=== PATIENT | female | born 1955 | race Two or more races ===

== ENCOUNTER 2023-09-19 16:15 | Emergency (ER) | payer OTHER, MEDICAID ==
[~2023-09-19] VITALS: Ht 142.2 cm; Wt 78.5 kg
[2023-09-19 18:29] VITALS: BP 163/76; PULSE 72; RESP 13; TEMP 97.5; O2SAT 96
[2023-09-19] MEDS ORDERED: BENZ100C97 PO (20:37)
== END 2023-09-19 20:46 | disposition home or self-care (01) ==
LOC: ER 16:15
DX: R05.9 Cough, unspecified (principal); R07.81 Pleurodynia; M54.6 Pain in thoracic spine; R07.89 Other chest pain; I10 Essential (primary) hypertension
CPT/HCPCS: 71045

== ENCOUNTER 2024-10-17 13:42 | Inpatient (IN) | payer OTHER, MEDICAID ==
[~2024-10-17] VITALS: Ht 157.5 cm; Wt 79.5 kg
[~2024-10-17 13:42] MED LIST: BENZ100C97 PO
--- NOTE | 2024-10-17 15:26 | ED.PDOC ---
History of Present Illness HPI Comments 69 y/o F, presents to the ED for CC of flu-like symptoms. Patient states, that she has been experiencing a persistent productive cough x years with new onset symptoms of insomnia and back pain [id number]. Patient relays, that she has experienced similar symptoms in the past which have always subsided with . David mari currently takes tramadol and denies any other medications. Patient denies fever, chills, body-aches, or N/V/D. No other symptoms or modifying factors at this time. Chief Complaint: Flu like Time Seen by MD: 15:10 Primary Care Provider: none Reviewed Notes: Nurses Notes, Medications, Allergies Allergies: Coded Allergies: NO KNOWN ALLERGIES (Unverified , 09/19/23) Home Meds Active Scripts Benzonatate (Benzonatate) 100 Mg Cap, 1-2 CAP PO Q4HR, #60 CAP Prov:LEONARD LIAO VIRAJ PAC 09/19/23 Information Source: Patient Mode of Arrival: Ambulatory Severity: Moderate Timing: Months Duration: Since onset Prehospital treatment: None Past Medical History PAST MEDICAL HISTORY: HTN Surgical History: Denies all surgeries SECURITIES RESEARCH ANALYST History: No Pertinent SECURITIES RESEARCH ANALYST History Family History Family History: Reviewed,noncontributory to illness Social History Smoker: Non-Smoker Alcohol: Denies ETOH Use Drugs: Denies Drug Use Lives In: Home Constitutional: reports: weakness; denies: chills, diaphoresis, fatigue, fever, malaise, sweats, others EENTM: denies: blurred vision, double vision, ear bleeding, ear discharge, ear drainage, ear pain, ear ringing, eye pain, eye redness, hearing loss, mouth pain, mouth swelling, nasal discharge, nose bleeding, nose congestion, nose pain, photophobia, tearing, throat pain, throat swelling, voice changes, others Respiratory: reports: cough; denies: hemoptysis, orthopnea, SOB at rest, shortness of breath, SOB with excertion, stridor, wheezing, others Cardiovascular: denies: chest pain, dizzy spells, diaphoresis, Dyspnea on exertion, edema, irregular heart beat, left arm pain, lightheadedness, palpitations, PND, syncope, others Gastrointestinal: denies: abdomen distended, abdominal pain, blood streaked bowels, constipated, diarrhea, dysphagia, difficulty swallowing, hematemesis, melena, nausea, poor appetite, poor fluid intake, rectal bleeding, rectal pain, vomiting, others Genitourinary: denies: abnormal vagina bleeding, burning, dyspareunia, dysuria, flank pain, frequency, hematuria, incontinence, pain, , vagina discharge, urgency, others Neurological: denies: dizziness, fainting, headache, left sided numbness, left sided weakness, numbness, paresthesia, pre-existing deficit, right sided numbness, right sided weakness, seizure, speech problems, tingling, tremors, weakness, others Musculoskeletal: reports: back pain; denies: gout, joint pain, joint swelling, muscle pain, muscle stiffness, neck pain, others Integumetry: denies: bruises, change in color, change in hair/nails, dryness, laceration, lesions, lumps, rash, wounds, others Allergic/Immunocompromised: denies: Difficulty Healing, Frequent Infections, Hives, Itching, others Hematologic/Lymphatic: denies: anemia, blood clots, easy bleeding, easy bruising, swollen glands, others Endocrine: denies: excessive hunger, excessive sweating, excessive thirst, excessive urination, flushing, intolerance to cold, intolerance to heat, unexplained weight gain, unexplained weight loss, others Psychiatric: denies: anxiety, bipolar disorder, depression, hopeless, panic disorder, schizophrenia, sleepless, suicidal, others All Other Systems: Reviewed and Negative Physical Exam General Appearance: Moderate Distress, Obese HEENT: Normal ENT Inspection, Pharynx Normal, TMs Normal Neck: Full Range of Motion, Non-Tender, Normal, Normal Inspection Respiratory: Chest Non-Tender, Decreased Breath Sounds, Lungs Clear, No Accessory Muscle Use, Respiratory Distress Cardiovascular: No Edema, No JVD, No Murmur, No Gallop, Normal Peripheral Pulses, Regular Rate/Rhythm Breast Exam: Deferred Gastrointestinal: No Organomegaly, Non Tender, No Pulsatile Mass, Normal Bowel Sounds, Soft Genitalia: Deferred Pelvic: Deferred Rectal: Deferred Extremities: No calf tenderness, Normal capillary refill, Pedal edema Musculoskeletal : Apperance: Normal Neurologic: Alert, food clerk II-XII nml as Tested, No Motor Deficits, Normal Affect, Normal Mood, No Sensory Deficits Cerebellar Function: Normal Reflexes: Normal Skin: Dry, Normal Color, Warm Lymphatic: No Adenopathy Was a procedure done? Was a procedure done?: No Differential Dx Considerations may include: URI, SINUITIS, BRONCHITIS, PNEUMONIA X-Ray, Labs, Meds, VS Vital Signs Date Time Temp Pulse Resp B/P (MAP) Pulse Ox O2 Delivery O2 Flow Rate FiO2 10/17/24 14:29 97.9 75 19 136/58 (84) 98 Lab Test 10/17/24 15:36 Range/Units White Blood Count 6.3 4.4-10.8 10^3/uL Red Blood Count 4.17 4.0-5.20 10^6/uL Hemoglobin 11.9 L 12.2-16.2 g/dL Hematocrit 36.1 36.0-46.0 % Mean Corpuscular Volume 86.6 80.0-100.0 fL Mean Corpuscular Hemoglobin 28.7 28.0-32.0 pg Mean Corpuscular Hemoglobin Concent 33.1 32.0-36.0 g/dL Red Cell Distribution Width 14.8 H 11.8-14.3 % Platelet Count 263 140-450 10^3/uL Mean Platelet Volume 8.6 6.9-10.8 fL Neutrophils (%) (Auto) 50.1 37.0-80.0 % Lymphocytes (%) (Auto) 36.1 10.0-50.0 % Monocytes (%) (Auto) 9.3 0.0-12.0 % Eosinophils (%) (Auto) 3.5 0.0-7.0 % Basophils (%) (Auto) 1.0 0.0-2.0 % Neutrophils # (Auto) 3.1 1.6-8.6 10 ^3/uL Lymphocytes # (Auto) 2.3 0.4-5.4 10 ^3/uL Monocytes # (Auto) 0.6 0-1.3 10 ^3/uL Eosinophils # (Auto) 0.2 0-0.8 10 ^3/uL Basophils # (Auto) 0.1 0-0.2 10 ^3/uL Nucleated Red Blood Cells 0.2 % Sodium Level 140 136-145 mmol/L Potassium Level 4.0 3.5-5.1 mmol/L Chloride Level 106 98-107 mmol/L Carbon Dioxide Level 28 20-31 mmol/L Anion Gap 6 5-15 Blood Urea Nitrogen 17 9-23 mg/dL Creatinine 1.07 H 0.550-1.02 mg/dL Glomerular Filtration Rate Calc 56 >90 mL/min BUN/Creatinine Ratio 15.9 10.0-20.0 Serum Glucose 104 74-106 mg/dL Calcium Level 9.3 8.7-10.4 mg/dL B-Type Natriuretic Peptide 268.95 0-100 pg/mL IV Hep-Lock was established The CBC is within normal limits. The chemistry panel shows a creatinine of 1.07 The BNP is 268.95 At this time, the patient was being admitted to the hospitalist. The chest x-ray shows: No sign of any abnormalities The patient was being admitted Images Reviewed?: Images reviewed and evaluated by me Time of 1ST Reevaluation: 15:40 Reevaluation 1ST: Unchanged Patient Education/Counseling: Diagnosis, Treatment, Prognosis Family Education/Counseling: No Family Present Departure 1 Departure Time of Disposition: 16:47 Impression: Primary Impression: Acute dyspnea Disposition: ADMITTED INPATIENT Admit to: [facility] Condition: Fair Critical Care Note Critical Care Time?: Yes (35 min-critical care time only) Stability Stability form required: Yes Unstable for transfer: Telemetry monitoring (Telemetry monitoring required), ED Physician Assesment (Clinical assesment) Heart Score Heart Score: Heart Score Response (Comments) Value History N/A 0 EKG N/A 0 Age N/A 0 Risk Factors N/A 0 Troponin N/A 0 Total 0 I personally scribed for ONEL BANKS MD ([email or web address]) on 10/17/24 at 15:26. Electronically submitted by Ambar Milner ([email or web address]). ONEL BANKS MD Oct 17, 2024 15:26
[2024-10-17 16:01] LABS: Basophils # (auto) 0.1 10 ^3/uL (0-0.2); Eosinophils # (auto) 0.2 10 ^3/uL (0-0.8); Eosinophils % (auto) 3.5 % (0.0-7.0); Hematocrit 36.1 % (36.0-46.0); Hemoglobin 11.9 g/dL (12.2-16.2); Lymphocytes # (auto) 2.3 10 ^3/uL (0.4-5.4); Lymphocytes % (auto) 36.1 % (10.0-50.0); Mean Corpuscular Hemoglobin 28.7 pg (28.0-32.0); Mean Corpuscular Hgb Conc. 33.1 g/dL (32.0-36.0); Mean Corpuscular Volume 86.6 fL (80.0-100.0); Monocytes # (auto) 0.6 10 ^3/uL (0-1.3); Monocytes % (auto) 9.3 % (0.0-12.0); Neutrophils # (auto) 3.1 10 ^3/uL (1.6-8.6); Neutrophils % (auto) 50.1 % (37.0-80.0); Nucleated Red Blood Cells % 0.2 %; Platelet Count (auto) 263 10^3/uL (140-450); Red Blood Cells 4.17 10^6/uL (4.0-5.20); Red Cell Distribution Width 14.8 % (11.8-14.3); White Blood Cell 6.3 10^3/uL (4.4-10.8)
[2024-10-17 16:02] LABS: Chloride 106 mmol/L (98-107); Sodium 140 mmol/L (136-145)
[2024-10-17 16:03] LABS: Anion Gap 6 (5-15); Calcium 9.3 mg/dL (8.7-10.4); Carbon Dioxide 28 mmol/L (20-31)
--- NOTE | 2024-10-17 16:07 | DVH ---
CHEST RADIOGRAPH Indication: cough Technique: Single frontal view of the chest was obtained COMPARISON: XY CHEST XRAY 1 VIEW on DOS: 09/19/23 FINDINGS: Lines and Tubes: None Lungs: Clear Pleura: No effusion. No pneumothorax. Cardiomediastinal contours: Unremarkable Bones: Unremarkable IMPRESSION: No acute disease.
[2024-10-17 16:08] LABS: Glucose 104 mg/dL (74-106)
[2024-10-17 16:09] LABS: BUN/Creatinine Ratio 15.9 (10.0-20.0); Blood Urea Nitrogen 17 mg/dL (9-23)
[2024-10-17 20:42] VITALS: PULSE 59; RESP 18; O2SAT 97
[2024-10-17 21:23] VITALS: BP 137/79; PULSE 62; RESP 18; TEMP 98.5
[2024-10-17] MEDS ORDERED: methylPREDNISolone SOD SUCC 40 MG/ML VL IV ONE (21:30)
[2024-10-17] MEDS ORDERED: AZITHROMYCIN 500MG/ 250ML 250 ML IV SCH (21:30)
[2024-10-17] MEDS ORDERED: FUROSEMIDE 20 MG/2 ML VIAL IV ONE (21:30)
[2024-10-17] MEDS ORDERED: IPRATROPIUM BROM 0.5 MG/2.5ML INH SOL NEB SCH (22:00)
[2024-10-17] MEDS ORDERED: ALBUTEROL SULF 2.5 MG/0.5ML(0.5%) NEB SOLN NEB SCH (22:00)
[2024-10-17 22:08] LABS: Rapid Influenza A Negative (Negative); Rapid Influenza B Negative (Negative)
--- NOTE | 2024-10-17 22:17 | DVHHPRES ---
History of Present Illness Resident Creating Document: OMID TORRES RESIDENT Reason for Visit: SOB History of Present Illness A 69-year-old female with a past medical history of hypertension presents with a two-week history of a persistent, productive cough with clear sputum. She also reports new-onset insomnia and back pain for the past six months. She denies fever, chills, body aches, nausea, vomiting, or other systemic symptoms. She has experienced similar episodes in the past that have resolved on their own. Patient also states orthopnea Past Medical History: Hypertension Past Surgical History: None reported Medications: Tramadol Benzonatate 100 mg (as per home medication list) Allergies: No known drug allergies Family History: Non-contributory Social History: Non-smoker Denies alcohol or drug use Review of Systems Constitutional: No: Fever, Chills, Sweats, Weakness, Malaise, Other Eyes: No: Pain, Vision change, Conjunctivae inflammation, Eyelid inflammation, Other, Redness ENT: No: Ear pain, Ear discharge, Nose pain, Nose discharge, Nose congestion, Mouth pain, Mouth swelling, Throat pain, Throat swelling, Other Respiratory: Cough, Shortness of breath; No: Dry, SOB with excertion, Wheezing, Hemoptysis, Pleuritic Pain, Sputum, Wheezing, Other Cardiovascular: Orthopnea; No: Chest Pain, Palpitations, Paroxysmal Noc. Dyspnea, Edema, Lt Headedness, Other Gastrointestinal: No: Nausea, Vomiting, Abdominal Pain, Diarrhea, Constipation, Melena, Hematochezia, Other Genitourinary: No Dysuria, No Frequency, No Incontinence, No Hematuria, No Retention, No Other Musculoskeletal: No: other, neck pain, shoulder pain, arm pain, back pain, hand pain, leg pain, foot pain Skin: No: Rash, Lesions, Jaundice, Bruising, Other Neurological: No: Weakness, Numbness, Incoordination, Change in speech, Confusion, Seizures, Other Allergies: Coded Allergies: NO KNOWN ALLERGIES (Unverified , 09/19/23) Medications Current Medications Medications Dose Ordered Sig/Alfred Route Start Time Stop Time Status Last Admin Dose Admin Azithromycin 250 ml @ 125 mls/hr DAILY IV 10/17/24 21:30 Albuterol 2.5 mg Q6HR NEB 10/18/24 00:00 Ipratropium [place] 0.5 mg Q6HR NEB 10/18/24 00:00 Exam Vital Signs Vital Signs Date Time Temp Pulse Resp B/P (MAP) Pulse Ox O2 Delivery O2 Flow Rate FiO2 10/17/24 21:23 98.5 62 18 137/79 (98) 96 98.5 10/17/24 20:42 Room Air* 0 21 Exam General: No acute distress HEENT: No oropharyngeal erythema or exudates Lungs: Bibasilar crackles, no wheezing Cardiac: Regular rate and rhythm, no murmurs or rubs Abdomen: Soft, non-tender, non-distended Extremities: No edema Neurological: Alert and oriented Labs/Xrays Labs Test 10/17/24 20:30 10/17/24 15:36 Range/Units Influenza Type A Antigen Negative Negative Influenza Type B Antigen Negative Negative White Blood Count 6.3 4.4-10.8 10^3/uL Red Blood Count 4.17 4.0-5.20 10^6/uL Hemoglobin 11.9 L 12.2-16.2 g/dL Hematocrit 36.1 36.0-46.0 % Mean Corpuscular Volume 86.6 80.0-100.0 fL Mean Corpuscular Hemoglobin 28.7 28.0-32.0 pg Mean Corpuscular Hemoglobin Concent 33.1 32.0-36.0 g/dL Red Cell Distribution Width 14.8 H 11.8-14.3 % Platelet Count 263 140-450 10^3/uL Mean Platelet Volume 8.6 6.9-10.8 fL Neutrophils (%) (Auto) 50.1 37.0-80.0 % Lymphocytes (%) (Auto) 36.1 10.0-50.0 % Monocytes (%) (Auto) 9.3 0.0-12.0 % Eosinophils (%) (Auto) 3.5 0.0-7.0 % Basophils (%) (Auto) 1.0 0.0-2.0 % Neutrophils # (Auto) 3.1 1.6-8.6 10 ^3/uL Lymphocytes # (Auto) 2.3 0.4-5.4 10 ^3/uL Monocytes # (Auto) 0.6 0-1.3 10 ^3/uL Eosinophils # (Auto) 0.2 0-0.8 10 ^3/uL Basophils # (Auto) 0.1 0-0.2 10 ^3/uL Nucleated Red Blood Cells 0.2 % Sodium Level 140 136-145 mmol/L Potassium Level 4.0 3.5-5.1 mmol/L Chloride Level 106 98-107 mmol/L Carbon Dioxide Level 28 20-31 mmol/L Anion Gap 6 5-15 Blood Urea Nitrogen 17 9-23 mg/dL Creatinine 1.07 H 0.550-1.02 mg/dL Glomerular Filtration Rate Calc 56 >90 mL/min BUN/Creatinine Ratio 15.9 10.0-20.0 Serum Glucose 104 74-106 mg/dL Calcium Level 9.3 8.7-10.4 mg/dL B-Type Natriuretic Peptide 268.95 0-100 pg/mL Assessment/Plan Assessment/Plan 69-year-old female with a history of HTN presenting with a productive cough for two weeks, insomnia, and back pain. Workup reveals mild pulmonary congestion on CXR and a mildly elevated BNP. #Possible Acute Heart Failure vs. #Viral Pneumonitis #Hypertension Admit Furosemide IV Solumedrol Azithromycin IV Breathing treatments ECHO pending Hold on BPs meds for now Case discussed with Dr Gardner Plan discussed with: Patient, Other (rn) My Orders Orders - OMID TORRES RESIDENT Procedure Category Date Status Time Admit ADMIT 10/17/24 Transmitted 21:22 Covid19 Antigen Veran LAB 10/17/24 Logged Echo 2d Mode Cardiac US 10/17/24 Logged DOP 21:22 Urinalysis LAB 10/17/24 Logged 21:22 Methylprednisolone PHA 10/17/24 In Process Sod Succ (Solu Medrol 21:30 Azithromycin 500mg/ PHA 10/17/24 In Process 250ml (Zithromax 50 21:30 Thyroid Stimulating LAB 10/17/24 In Process Hormone 21:22 Complete Blood Count LAB 10/18/24 Verified 04:00 Comprehensive LAB 10/18/24 Verified Metabolic Panel 04:00 Drug Screen LAB 10/18/24 Verified 04:00 Hemoglobin A1c LAB 10/18/24 Verified 04:00 Lactic Acid W/ Reflex LAB 10/18/24 Verified Order 04:00 Lipid Panel LAB 10/18/24 Verified 04:00 Vitamin B12 LAB 10/18/24 Verified 04:00 Vitamin D, 25-Hydroxy LAB 10/18/24 Verified 04:00 Electrocardigram EKG 10/17/24 Logged 21:43 Albuterol Medneb PHA 10/18/24 In Process (Ventolin Medneb) 00:00 Ipratropium Medneb PHA 10/18/24 In Process (Atrovent Medneb) 00:00 Date of Service: Oct 17, 2024 Billing Provider: MARCO GARDNER MD Common Visit Codes: 70005-LDZITHZ INP/OBS CARE (HIGH) Secondary Visit Codes: 77252-DHBZBHYK CARE PLAN 30 MINUTES OMID TORRES RESIDENT Oct 17, 2024 22:16 MARCO GARDNER MD Oct 18, 2024 18:34
[2024-10-17 22:30] VITALS: O2SAT 97
[2024-10-18] MEDS ORDERED: IPRATROPIUM BROM 0.5 MG/2.5ML INH SOL NEB SCH
[2024-10-18] MEDS ORDERED: ALBUTEROL SULF 2.5 MG/0.5ML(0.5%) NEB SOLN NEB SCH
[2024-10-18] MEDS ORDERED: FUROSEMIDE 20 MG/2 ML VIAL IV SCH (10:00)
== END 2024-10-17 22:59 | disposition left against medical advice (07) | DRG 195 ==
LOC: ER 13:42 → OVERFLOW 21:22
PROVIDERS: ATTEND Emergency Medicine
DX: J12.9 Viral pneumonia, unspecified (principal); I11.0 Hypertensive heart disease with heart failure; I50.9 Heart failure, unspecified; Z53.29 Procedure and treatment not carried out because of patient's decision for other reasons; Z79.899 Other long term (current) drug therapy
CPT/HCPCS: 36415; 71045; 80048; 83880; 84443; 85025; 87804; 99291; G0378

== ENCOUNTER 2025-06-02 13:36 | Inpatient (IN) | payer MEDICARE, MEDICAID ==
[~2025-06-02] VITALS: Ht 152.4 cm; Wt 82.9 kg
--- NOTE | 2025-06-02 13:58 | ECG ---
[facility] Test Date: 2025-06-02 Test Time: 13:48:18 Pat Name: LAUREN ROMERO Department: ED Room: Gender: F Knocker Off: TEJA : 1955 Requested By: EMERGENCY EMERGENCY Order Number: [id number] Reading MD: Maikel Sawyer Measurements Intervals [place] Rate: 81 P: 0 ID: 0 QRS: 25 QRSD: 79 T: 0 QT: 396 QTc: 460 Interpretive Statements Atrial fibrillation Borderline T wave abnormalities Electronically Signed On 06-02-2025 18:52:27 PDT by Maikel Sawyer Please click the below link to view image of tracing.
[2025-06-02 14:10] LABS: Hematocrit 37.4 % (36.0-46.0); Hemoglobin 12.6 g/dL (12.2-16.2); Mean Corpuscular Hemoglobin 28.9 pg (28.0-32.0); Mean Corpuscular Volume 86.1 fL (80.0-100.0); Nucleated Red Blood Cells % 0.0 %
[2025-06-02 14:20] LABS: Chloride 105 mmol/L (98-107); Potassium 3.9 mmol/L (3.5-5.1); Sodium 144 mmol/L (136-145)
[2025-06-02 14:21] LABS: Anion Gap 7 (5-15); Calcium 9.0 mg/dL (8.7-10.4); Carbon Dioxide 32 mmol/L (20-31)
--- NOTE | 2025-06-02 14:25 | DVH ---
CHEST RADIOGRAPH Indication: sob Technique: Single frontal view of the chest was obtained Comparison: XY CHEST XRAY 1 VIEW on DOS: 10/17/24, XY CHEST XRAY 1 VIEW on DOS: 09/19/23 FINDINGS: Lines and Tubes: None Lungs: No focal consolidation. Pleura: No effusion. No pneumothorax. Cardiomediastinal contours: Unremarkable Bones: No acute osseous abnormality. IMPRESSION: 1. No acute cardiopulmonary disease. 2. No significant change from 10/17/2024.
[2025-06-02 14:26] LABS: Blood Urea Nitrogen 15 mg/dL (9-23); Glucose 111 mg/dL (74-106)
--- NOTE | 2025-06-02 14:29 | ED.PDOC ---
History of Present Illness HPI Comments 70 y/o Kittitian-speaking F, with a Hx of HTN, presents with c/c of shortness of breath w/exertion for 1x week. Patient reports becoming short of breath within walking a a few meters. She reports associated dizziness and bilateral arm and leg pain. Denies any chest pain, weakness, lightheadedness, or further a ssociated symptoms. No reported recent injuries or prior ailments along with any pertinent recent history or events. Upon arrival to ED triage, patient was found with a blood pressure of 166/91. Chief Complaint: Shortness of Breath Time Seen by MD: 13:45 Primary Care Provider: none Reviewed Notes: Nurses Notes, Medications, Allergies Allergies: Coded Allergies: NO KNOWN ALLERGIES (Unverified , 09/19/23) Home Meds Active Scripts Benzonatate (Benzonatate) 100 Mg Cap, 1-2 CAP PO Q4HR, #60 CAP Prov:LEONARD LIAO VIRAJ PAC 09/19/23 Information Source: Patient Mode of Arrival: Ambulatory Severity: Moderate Timing: Days Duration: Since onset Prehospital treatment: None Past Medical History PAST MEDICAL HISTORY: HTN Surgical History: Denies all surgeries BAY STOCKER History: No Pertinent BAY STOCKER History Family History Family History: Reviewed,noncontributory to illness Social History Smoker: Non-Smoker Alcohol: Denies ETOH Use Drugs: Denies Drug Use Lives In: Home All Other Systems: Reviewed and Negative (Comprehensive review of systems are n egative unless stated in HPI) Physical Exam General Appearance: Moderate Distress HEENT: Normal ENT Inspection, Pharynx Normal, TMs Normal Neck: Full Range of Motion, Non-Tender, Normal, Normal Inspection Respiratory: Other (Coarse breath sounds) Cardiovascular: No Edema, No JVD, No Murmur, No Gallop, Normal Peripheral Pulses, Regular Rate/Rhythm Breast Exam: Deferred Gastrointestinal: No Organomegaly, Non Tender, No Pulsatile Mass, Normal Bowel Sounds, Soft Genitalia: Deferred Pelvic: Deferred Rectal: Deferred Extremities: No calf tenderness, Normal capillary refill, Normal inspection, Normal range of motion, Non-tender, No pedal edema Musculoskeletal : Apperance: Normal Neurologic: Alert, supervisor forming department II-XII nml as Tested, No Motor Deficits, Normal Affect, Normal Mood, No Sensory Deficits Cerebellar Function: Normal Reflexes: Normal Skin: Dry, Normal Color, Warm Peripheral Pulses: 3+ Radial (R), 3+ Radial (L) Lymphatic: No Adenopathy Was a procedure done? Was a procedure done?: No EKG EKG : Pulse Rate (adult): 81 [place]: Normal Cardiac Rhythm: Afib Block: None Hypertrophy: None ST: Normal Differential Dx Considerations may include: Vertigo, viral, dehydration, electrolyte imbalance, hypertension, among others X-Ray, Labs, Meds, VS Vital Signs Date Time Temp Pulse Resp B/P (MAP) Pulse Ox O2 Delivery O2 Flow Rate FiO2 06/02/25 14:29 81 06/02/25 13:48 81 06/02/25 13:39 80.5 90 18 166/91 100 80.5 Lab Test 06/02/25 14:04 Range/Units White Blood Count 7.6 4.4-10.8 10^3/uL Red Blood Count 4.35 4.0-5.20 10^6/uL Hemoglobin 12.6 12.2-16.2 g/dL Hematocrit 37.4 36.0-46.0 % Mean Corpuscular Volume 86.1 80.0-100.0 fL Mean Corpuscular Hemoglobin 28.9 28.0-32.0 pg Mean Corpuscular Hemoglobin Concent 33.6 32.0-36.0 g/dL Red Cell Distribution Width 14.4 H 11.8-14.3 % Platelet Count 249 140-450 10^3/uL Mean Platelet Volume 8.7 6.9-10.8 fL Neutrophils (%) (Auto) 60.3 37.0-80.0 % Lymphocytes (%) (Auto) 28.3 10.0-50.0 % Monocytes (%) (Auto) 7.8 0.0-12.0 % Eosinophils (%) (Auto) 3.1 0.0-7.0 % Basophils (%) (Auto) 0.5 0.0-2.0 % Neutrophils # (Auto) 4.6 1.6-8.6 10 ^3/uL Lymphocytes # (Auto) 2.1 0.4-5.4 10 ^3/uL Monocytes # (Auto) 0.6 0-1.3 10 ^3/uL Eosinophils # (Auto) 0.2 0-0.8 10 ^3/uL Basophils # (Auto) 0 0-0.2 10 ^3/uL Nucleated Red Blood Cells 0.0 % Sodium Level 144 136-145 mmol/L Potassium Level 3.9 3.5-5.1 mmol/L Chloride Level 105 98-107 mmol/L Carbon Dioxide Level 32 H 20-31 mmol/L Anion Gap 7 5-15 Blood Urea Nitrogen 15 9-23 mg/dL Creatinine 0.98 0.550-1.02 mg/dL Glomerular Filtration Rate Calc 61 >90 mL/min BUN/Creatinine Ratio Pending Serum Glucose 111 H 74-106 mg/dL Calcium Level 9.0 8.7-10.4 mg/dL Troponin I High Sensitivity 37 *H </=34 ng/L [facility] [id number] [place] [address] Ph: [phone] DIAGNOSTIC IMAGING Diagnostic Imaging Report : [id number] Signed PATIENT: LAUREN ROMERO ACCT: [id number] UNIT: [id number] : 1955 LOC: ER ROOM / BED: / AGE / SEX: 70 / F ADM STATUS: REG ER SERVICE 1358 ORDERING PHYSICIAN: CRISTI KENNY MD PROCEDURE(s): CXRP - CHEST PORTABLE REASON: sob ORDER NUMBER(s): [id number], ACCESSION NUMBER(s): [id number] CHEST RADIOGRAPH Indication: sob Technique: Single frontal view of the chest was obtained Comparison: XY CHEST XRAY 1 VIEW on DOS: 10/17/24, XY CHEST XRAY 1 VIEW on DOS: 09/19/23 FINDINGS: Lines and Tubes: None Lungs: No focal consolidation. Pleura: No effusion. No pneumothorax. Cardiomediastinal contours: Unremarkable Bones: No acute osseous abnormality. IMPRESSION: 1. No acute cardiopulmonary disease. 2. No significant change from 10/17/2024. ATED BY: JONNY NAVARRO Jr., DO DICTATED DATE/TIME: 06/02/251422 SIGNED BY: JONNY NAVARRO Jr., DO SIGNED DATE/TIME: 06/02/251422 CC: Patient alert. Came in because of shortness a breath dizziness. Vitals stable. Answering all questions. Chest x-ray reviewed does not show any acute changes. Cardiac marker slightly elevated. EKG reviewed does not show any acute changes. WBC within normal limits. Hemoglobin within normal limits. Blood pressure elevated. Was given clonidine. Time of 1ST Reevaluation: 14:15 Reevaluation 1ST: Unchanged Patient Education/Counseling: Diagnosis, Treatment Family Education/Counseling: No Family Present SEPSIS Sepsis Screen Date sepsis recognized/suspect: Jun 02, 2025 Time Sepsis recognized/suspect: 1341 Recent Procedure: No On Antibiotic Therapy: No Respiratory Rate >20: No Heart Rate >90: Yes Temp<36 C (96.8 F) or >38.3 C: No SBP <90 or MAP <65 mmHG: No New Acute Mental Status Change: No Is the patient on CPAP, BIPAP,: No Physician Orders Chest Portable (06/02/25 13:58) Urinalysis (06/02/25 13:58) Basic Metabolic Panel (06/02/25 13:58) Vital Signs Date Time Temp Pulse Resp B/P (MAP) Pulse Ox O2 Delivery O2 Flow Rate FiO2 06/02/25 14:29 81 06/02/25 13:48 81 06/02/25 13:39 80.5 90 18 166/91 100 80.5 Laboratory Tests Test 06/02/25 14:04 White Blood Count 7.6 10^3/uL (4.4-10.8) Departure 1 Departure Time of Disposition: 14:52 Impression: Primary Impression: Hypertensive urgency Additional Impressions: Hypertensive cardiomyopathy Qualified Codes: I11.0 - Hypertensive heart disease with heart failure; I43 - Cardiomyopathy in diseases classified elsewhere Demand ischemia Autonomic disorder Disposition: ADMITTED INPATIENT Admit to: Med Surg Condition: Guarded Critical Care Note Critical Care Time?: Yes (90 min-critical care time only) Stability Stability form required: No Heart Score Heart Score: Heart Score Response (Comments) Value History Slightly Suspicious 0 EKG Normal 0 Age >65 2 Risk Factors >3 or Hx ASHD 2 Troponin 1-2 x's Normal limit 1 Total 5 I personally scribed for CRISTI KENNY MD ([email or web address]) on 06/02/25 at 14:29. Electronically submitted by Chandana Erazo ([email or web address]). I personally scribed for CRISTI KENNY MD ([email or web address]) on 06/02/25 at 14:33. Electronically submitted by Chandana Erazo ([email or web address]). CRISTI KENNY MD Jun 02, 2025 14:29
[2025-06-02 14:57] LABS: BUN/Creatinine Ratio 15.3 (10.0-20.0)
[2025-06-02 15:35] VITALS: PULSE 76; RESP 18; O2SAT 97
[2025-06-02 15:38] LABS: Urine Protein, UAD Negative (Negative)
[2025-06-02] MEDS ORDERED: ONDANSETRON HCL 4 MG/2 ML VIAL IV PRN (21:30)
[2025-06-02] MEDS ORDERED: ACETAMINOPHEN 325 MG TAB PO PRN (21:30)
[2025-06-02] MEDS ORDERED: MORPHINE SULFATE INJ 2 MG/ml SYRG IV PRN (21:30)
[2025-06-02] MEDS ORDERED: NITROGLYCERIN 0.4 MG SL TAB SL PRN (21:30)
[2025-06-02 21:49] LABS: HDL Cholesterol 59 mg/dL (40-59)
[2025-06-02 21:50] LABS: Cholesterol 214 mg/dL (< 200); Triglycerides 288 mg/dL (< 150)
[2025-06-02 23:55] VITALS: PULSE 64; RESP 19; O2SAT 97
[2025-06-02] MEDS: FUROSEMIDE 20 MG/2 ML VIAL IV ONE (23:55)
[2025-06-03] VITALS (9 sets, daily range): BP systolic 101–136; BP diastolic 54–87; PULSE 61–79; RESP 16–19; TEMP 97.2–98.4; O2SAT 94–100
--- NOTE | 2025-06-03 02:01 | DVHHP2 ---
Admitting Diagnosis: CHF, Chest Pain, Elevated troponin History of Present Illness History Source: Patient Exam Limitations: No limitations HPI Mrs. Suyapa Hernandez is a 70 year old female, with a history of Hypertension who presents with a chief complaint of shortness of breath w/exertion x 1 week. Patient reports becoming short of breath within walking a a few meters. She reports associated dizziness and bilateral lower extremity swelling, patient also reports chest pressure to generalized chest. Denies any weakness, lightheadedness, or further associated symptoms. No reported recent injuries or prior ailments along with any pertinent recent history or events. Patient admitted for further evaluation. Home Meds Active Scripts Benzonatate (Benzonatate) 100 Mg Cap, 1-2 CAP PO Q4HR, #60 CAP Prov:LEONARD LIAO PAC 09/19/23 Past Medical History Cardiac: HTN Pulmonary: No pertinent Hx Central Nervous System: No pertinent Hx GI: No pertinent Hx Hemotology/Oncology: No pertinent Hx Hepatobiliary: No pertinent Hx Psychiatric: No pertinent Hx Musculoskeletal: No pertinent Hx Rheumotologic: No pertinent Hx Infectious Disease: No peritnent Hx ENT: No pertinent Hx Renal/: No pertinent Hx Endocrine: No pertinent Hx Dermatology: No pertinent Hx Smoker: No Hx (Negative) Alocohol: None Drugs: None Lives with: With family Domestic Violence: Neg Review of Systems Constitutional: No symptom reported Ears, Nose, & Throat: No symptom reported Eyes: No symptom reported Pulmonary/Respiratory: Dyspnea (exertional) Cardiovascular: Other (chest pressure) Gastrointestinal: No symptom reported Genitourinary: No symptom reported Musculoskeletal: No symptom reported Skin: No symptom reported Psychiatric: No symptom reported Endocrine: No symptom reported Hemotologic/Lymphatic: No symptom reported H&P Exam Vital Signs Vital Signs Date Time Temp Pulse Resp B/P (MAP) Pulse Ox O2 Delivery O2 Flow Rate FiO2 06/02/25 23:55 97.8 64 19 97/49 (65) 97 97.8 06/02/25 23:55 Room Air* 0 21 General Appeara: Well developed, Well nourished, Normal Appearance Head Exam: Normal inspection Neck Exam: Normal inspection, Non-tender, Normal alignment Eye Exam: bilateral eye Normal inspection, bilateral eye PERRL, bilateral eye EOMI Ear Exam: bilateral ear Auricle normal Nasal Exam: Normal inspection Mouth: Normal Inspection Pulmonary/Respiratory: Normal inspection, Normal breath sounds, Chest non- tender, Lungs clear Cardiovascular/Chest: Normal inspection, Edema (BLE), Regular rate, Normal Rhythm Peripheral Pulses: 2+ dorsalis pedis (R), 2+ dorsalis pedis (L), 2+ Radial (R) Abdominal Exam: Normal bowel sounds, Soft, No tenderness Legs: bilateral leg swelling (+2 pitting edema) 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, Normal speech, PERRL Neuro/Mental St: Alert, Oriented Appearance: Appropriate appearance, Appropriate insight Eye contact/ Speech: Cooperative, Good eye contact, Normal speech Thoughts/Psych: Normal thought pattern Skin Exam: Normal inspection, Normal color, Warm/dry SEPSIS Sepsis Screen Date sepsis recognized/suspect: Jun 02, 2025 Time Sepsis recognized/suspect: 2354 Recent Procedure: No On Antibiotic Therapy: No Respiratory Rate >20: No Heart Rate >90: No Temp<36 C (96.8 F) or >38.3 C: No SBP <90 or MAP <65 mmHG: No New Acute Mental Status Change: No Is the patient on CPAP, BIPAP,: No Physician Orders Troponin-I Hs (06/03/25 06:00) Troponin-I Hs (06/03/25 14:00) Admit (06/02/25:) Urine Bacterial Culture (06/02/25:) Cardiac Diet-2gna,Lofat,Lochol (06/03/25 Breakfast) Full Code (06/02/25:25) Strict I & O QSHIFT (06/02/25:) Maintain Fluid Restrictions QSHIFT (06/02/25:25) Echo 2d Mode Cardiac Dop (06/02/25:25) * Cardiology Consult (06/02/25:25) Nitroglycerin Sublingual (Ntrostat Subli (06/02/25 21:30) Morphine Sulfate Injection (06/02/25 21:30) Stat Ekg For Chest Pain (06/02/25:) Notify Of Changes From Base (06/02/25:) Stitch Separator For 24 Hours (06/02/25:25) Emergency Dysrhythmia Protocol (06/02/25:) Rhythm Strips Once Every Shift (06/02/25:) Oxygen By Nasal Cannula (10/18/25 21:25) Basic Metabolic Panel (06/03/25 05:00) Basic Metabolic Panel (06/04/25 05:00) Ondansetron Hcl (Zofran) (06/02/25 21:30) Aspirin Tablet (06/03/25 10:00) Enoxaparin Sodium (Lovenox) (06/03/25 10:00) Hydrocodone-Acet 5/325mg Tab ([place] 5/32 (06/02/25 21:30) Famotidine Tablet (Pepcid Tablet) (06/02/25 22:00) Acetaminophen Tablet (Tylenol Tablet) (06/02/25 21:30) Ceftriaxone 1gm/50ml (Rocephin) (06/03/25 10:00) Atorvastatin (Lipitor) (06/03/25 22:00) Furosemide Injection (Lasix Injection) (06/03/25 06:00) Vital Signs Date Time Temp Pulse Resp B/P (MAP) Pulse Ox O2 Delivery O2 Flow Rate FiO2 06/02/25 23:55 97.8 64 19 97/49 (65) 97 97.8 06/02/25 23:55 64 19 97 Room Air* 0 21 06/02/25 23:55 97.8 64 19 97/49 (65) 97 97.8 06/02/25 22:43 97.4 61 20 95/48 (64) 98 97.4 06/02/25 22:43 61 20 98 Room Air 06/02/25 18:04 97.8 65 18 93/65 (74) 97 97.8 Laboratory Tests Test 06/02/25 14:04 White Blood Count 7.6 10^3/uL (4.4-10.8) Medications Medications Dose Ordered Sig/Alfred Route Start Time Stop Time Status Last Admin Dose Admin Aspirin 325 mg ONCE ONCE PO 06/02/25 15:00 06/02/25 15:01 DC 06/02/25 15:28 325 MG Clonidine HCl 0.2 mg ONCE ONCE PO 06/02/25 15:00 06/02/25 15:01 DC 06/02/25 15:28 0.2 MG Labs/Xrays Labs Test 06/02/25 23:31 06/02/25 14:55 06/02/25 14:04 Range/Units Troponin I High Sensitivity 36 *H </=34 ng/L Urine Color Light-yellow Yellow Urine Clarity Clear Clear Urine pH 6.0 5.0-9.0 Urine Specific [place] 1.018 1.001-1.035 Urine Protein Negative Negative Urine Ketones Negative Negative Urine Blood 1+ H Negative /uL Urine Nitrite Negative Negative Urine Bilirubin Negative Negative Urine Urobilinogen Normal Negative mg/dL Urine Leukocyte Esterase 3+ Negative /uL Urine RBC 11 0 - 4 /hpf Urine Microscopic WBC 8 H 0-5 /HPF Urine Squamous Epithelial Cells Few <5 /hpf Urine Bacteria None seen None Seen /hpf Urine Mucus Few None Seen Urine Glucose Normal Normal mg/dL White Blood Count 7.6 4.4-10.8 10^3/uL Red Blood Count 4.35 4.0-5.20 10^6/uL Hemoglobin 12.6 12.2-16.2 g/dL Hematocrit 37.4 36.0-46.0 % Mean Corpuscular Volume 86.1 80.0-100.0 fL Mean Corpuscular Hemoglobin 28.9 28.0-32.0 pg Mean Corpuscular Hemoglobin Concent 33.6 32.0-36.0 g/dL Red Cell Distribution Width 14.4 H 11.8-14.3 % Platelet Count 249 140-450 10^3/uL Mean Platelet Volume 8.7 6.9-10.8 fL Neutrophils (%) (Auto) 60.3 37.0-80.0 % Lymphocytes (%) (Auto) 28.3 10.0-50.0 % Monocytes (%) (Auto) 7.8 0.0-12.0 % Eosinophils (%) (Auto) 3.1 0.0-7.0 % Basophils (%) (Auto) 0.5 0.0-2.0 % Neutrophils # (Auto) 4.6 1.6-8.6 10 ^3/uL Lymphocytes # (Auto) 2.1 0.4-5.4 10 ^3/uL Monocytes # (Auto) 0.6 0-1.3 10 ^3/uL Eosinophils # (Auto) 0.2 0-0.8 10 ^3/uL Basophils # (Auto) 0 0-0.2 10 ^3/uL Nucleated Red Blood Cells 0.0 % Sodium Level 144 136-145 mmol/L Potassium Level 3.9 3.5-5.1 mmol/L Chloride Level 105 98-107 mmol/L Carbon Dioxide Level 32 H 20-31 mmol/L Anion Gap 7 5-15 Blood Urea Nitrogen 15 9-23 mg/dL Creatinine 0.98 0.550-1.02 mg/dL Glomerular Filtration Rate Calc 61 >90 mL/min BUN/Creatinine Ratio 15.3 10.0-20.0 Serum Glucose 111 H 74-106 mg/dL Calcium Level 9.0 8.7-10.4 mg/dL B-Type Natriuretic Peptide 250.70 0-100 pg/mL Triglycerides Level 288 H < 150 mg/dL Cholesterol Level 214 H < 200 mg/dL LDL Cholesterol 127 H < 100 mg/dL HDL Cholesterol 59 40-59 mg/dL Assessment/Plan Problem List: (1) CHF (congestive heart failure) (2) Hypertensive urgency (3) Demand ischemia Plan This is a 70 yo female with known history of hypertension , who presents to the hospital with exertional dyspnea with associated chest pressure. Patient found to have 1. CHF 2. Chest pressure 3. Mildly elevated troponin most likely d/t demand ischemia 4. Hypertensive urgency 5. UTI Plan Admit to telemetry Cardiology consultation, 2D echocardiogram, serial troponin levels, ASA, Statin DVT ppx IV antibiotic , urine culture IV diuresis, monitor electrolytes replenish as needed Fluid Restriction, strict I&O Discussed all above with patient and patient in Filipino , both verbalized agreement and understanding of care plan. All questions were answered. Discussed with supervising MD. Plan discussed with: Patient, Other Code Visit Code Visit Total Time (mins): 45 Additional Comments Additional Comments Additional Comments Patient's chart is reviewed and discussed with the nurse practitioner. Patient is seen and evaluated and admitted by nurse practitioner this morning. I agree with her evaluation, documentation, assessment and care plan as outlined. Patient is seen and evaluated by me earlier today and discussed the care plan with the nurse. BARBRA KNOX Jun 03, 2025 02:01 LYDIA CAZARES MD Jun 03, 2025 16:28
[2025-06-03] MEDS: FAMOTIDINE 20 MG TAB PO SCH (02:27)
[2025-06-03] MEDS: FUROSEMIDE 20 MG/2 ML VIAL IV SCH (05:58)
[2025-06-03 06:26] LABS: Chloride 106 mmol/L (98-107); Potassium 4.1 mmol/L (3.5-5.1); Sodium 138 mmol/L (136-145)
[2025-06-03 06:27] LABS: Anion Gap 11 (5-15); Calcium 9.0 mg/dL (8.7-10.4); Carbon Dioxide 21 mmol/L (20-31)
[2025-06-03 06:32] LABS: BUN/Creatinine Ratio 20.3 (10.0-20.0); Blood Urea Nitrogen 13 mg/dL (9-23); Glucose 103 mg/dL (74-106)
[2025-06-03] MEDS: ENOXAPARIN SOD 40 MG/0.4 ML SYRINGE SC SCH (09:47)
--- NOTE | 2025-06-03 16:34 | DVHSR ---
APPROVED REPORT EXAM: Two-dimensional and M-mode echocardiogram with Doppler and color Doppler. Blood Pressure: 121/73 mmHg INDICATION Chest Pain Elevated troponin RISK FACTORS Height: 5'0", Weight: 185 DIMENSIONS LVDd3.9 (3.8-5.7cm)LA (2D)3.8 (1.9-4.0cm)Aortic Root3.2 (2.0-3.7cm) LVDs2.7 (2.5-4.0cm)LA (MM) (1.9-4.0cm)Aortic Cusp Exc1.9 (1.5-2.0cm) EF (%) 60.0 (55-70%)Rt. Atrium3.9 (1.9-4.0cm)Asc. Aorta cm IVSd1.2 (0.7-1.1cm)RV (D) (1.8-2.4cm) PWd1.3 (0.7-1.1cm) Mitral Valve MitralMitral Stenosis E wave1.07m/sMV Mean GR.mmHg A wave0.29m/sMV Peak GR.mmHg E/A ratio3.72D MVAcm2 DECEL [id number] 1/2 [place] Aortic Valve Aortic ValveAortic Stenosis V10.87m/Zev Mean GR.3mmHg V21.18m/Zev Peak GR.6mmHg LVOT Diameter2.0 (1.8-2.4cm)Doppler AVA2.32cm2 Pulmonic Valve V20.77m/s Tricuspid Valve TR Velocity2.34m/s [id number] Other Information Technically limited study due to body habitus. Conclusion Rhythm. Concentric LVH. Valves are normal. Mild mitral annular calcification. EF of 60% with normal RV function. Mild TR. No pericardial effusion masses or vegetations.
[2025-06-03] MEDS: HYDROcodone-ACET 5/325MG TAB PO PRN (20:49)
[2025-06-03] MEDS: ATORVASTATIN 20 MG TAB PO SCH (20:51)
[2025-06-04] VITALS (7 sets, daily range): BP systolic 109–134; BP diastolic 43–79; PULSE 57–83; RESP 16–19; TEMP 36.5; O2SAT 96–99
[2025-06-04 08:09] LABS: Chloride 101 mmol/L (98-107); Sodium 142 mmol/L (136-145)
[2025-06-04 08:10] LABS: Anion Gap 12 (5-15); Calcium 9.0 mg/dL (8.7-10.4); Carbon Dioxide 29 mmol/L (20-31)
[2025-06-04] MEDS ORDERED: IOHEXOL 350 MG/ML 100ML IJ ONE (08:12)
[2025-06-04 08:15] LABS: BUN/Creatinine Ratio 18.0 (10.0-20.0); Blood Urea Nitrogen 16 mg/dL (9-23); Glucose 100 mg/dL (74-106)
[2025-06-04 08:17] LABS: Potassium 3.5 mmol/L (3.5-5.1)
--- NOTE | 2025-06-04 09:21 | DVH ---
CT CT ANGIO CHEST CONTRAST INDICATION: Pleuritic chest discomfort EXAM DATE: 06/04/2025 08:02 AM COMPARISON: XY CHEST PORTABLE on DOS: 06/02/25, XY CHEST XRAY 1 VIEW on DOS: 10/17/24, XY CHEST XRAY 1 VIEW on DOS: 09/19/23 RADIATION DOSE: CTDIvol: 24.09 mGy, DLP: 827.49 mGy*cm PROCEDURE: Helical CT angiographic images were obtained of the chest with intravenous contrast. Sagi ttal and coronal reconstructions as well as MIPS are provided. Maximum intensity projections performe d (MIPs) were performed for CTA. ADDITIONAL IMAGES / REFORMATS: None All CT scans at this medical facility are performed using dose modulation techniques as appropriate t o a performed exam including the following: Automated exposure control was utilized; adjustment of th e MA and/or KV according to patient size; and use of iterative reconstruction technique. FINDINGS: Bones: Scattered degenerative changes are noted in the visualized osseous structures. Visualized Abdomen: Gallstone seen in the gallbladder. Chest Wall: Normal. Soft tissues: Normal. Mediastinum: Normal. Heart: Normal. Vessels: No filling defects in the visualized pulmonary arteries including the segmental and subsegme ntal pulmonary arteries. Lymph Nodes: Normal. Pleura: Normal. Airways: Normal. Lung: Mosaic lung attenuation. Other: None IMPRESSION: No pulmonary embolism in the visualized pulmonary arteries including the segmental and subsegmental p ulmonary arteries.
--- NOTE | 2025-06-04 10:07 | DVHINCON2 ---
Date of service: Jun 04, 2025 History of Present Illness 70 yo F with hx of htn, admitted for sob, leg edema and new AFib. pt found to be in afib on ecg. pt has no hx of this. echo showed normal lvef Past Medical History reviewed Family History: Patient reports no known family medical history. Allergies: Coded Allergies: NO KNOWN ALLERGIES (Unverified , 09/19/23) Home Meds Active Scripts Benzonatate (Benzonatate) 100 Mg Cap, 1-2 CAP PO Q4HR, #60 CAP Prov:LEONARD LIAO PAC 09/19/23 Current Medications Current Medications Medications (Trade) Dose Ordered Sig/Alfred Route PRN Reason Start Time Stop Time Status Last Admin Atorvastatin Calcium (Lipitor) 40 mg HS PO 06/03/25 22:00 06/03/25 20:51 Review of Systems 10 pt ros otherwise negative Vital Signs Vital Signs Date Time Temp Pulse Resp B/P (MAP) Pulse Ox O2 Delivery O2 Flow Rate FiO2 06/04/25 09:00 98.2 73 18 134/75 (94) 98 98.2 06/03/25 20:00 Room Air* 0 21 Physical Exam nad s1 s2 irregular ctab soft nt/nd +leg edema Labs/Diagnostic Data Labs Test 06/04/25 07:22 06/03/25 19:05 06/02/25 14:55 06/02/25 14:04 Range/Units Sodium Level 142 136-145 mmol/L Potassium Level 3.5 3.5-5.1 mmol/L Chloride Level 101 98-107 mmol/L Carbon Dioxide Level 29 20-31 mmol/L Anion Gap 12 5-15 Blood Urea Nitrogen 16 9-23 mg/dL Creatinine 0.89 # 0.550-1.02 mg/dL Glomerular Filtration Rate Calc 69 >90 mL/min BUN/Creatinine Ratio 18.0 10.0-20.0 Serum Glucose 100 74-106 mg/dL Calcium Level 9.0 8.7-10.4 mg/dL Troponin I High Sensitivity 39 *H </=34 ng/L Urine Color Light-yellow Yellow Urine Clarity Clear Clear Urine pH 6.0 5.0-9.0 Urine Specific [place] 1.018 1.001-1.035 Urine Protein Negative Negative Urine Ketones Negative Negative Urine Blood 1+ H Negative /uL Urine Nitrite Negative Negative Urine Bilirubin Negative Negative Urine Urobilinogen Normal Negative mg/dL Urine Leukocyte Esterase 3+ Negative /uL Urine RBC 11 0 - 4 /hpf Urine Microscopic WBC 8 H 0-5 /HPF Urine Squamous Epithelial Cells Few <5 /hpf Urine Bacteria None seen None Seen /hpf Urine Mucus Few None Seen Urine Glucose Normal Normal mg/dL White Blood Count 7.6 4.4-10.8 10^3/uL Red Blood Count 4.35 4.0-5.20 10^6/uL Hemoglobin 12.6 12.2-16.2 g/dL Hematocrit 37.4 36.0-46.0 % Mean Corpuscular Volume 86.1 80.0-100.0 fL Mean Corpuscular Hemoglobin 28.9 28.0-32.0 pg Mean Corpuscular Hemoglobin Concent 33.6 32.0-36.0 g/dL Red Cell Distribution Width 14.4 H 11.8-14.3 % Platelet Count 249 140-450 10^3/uL Mean Platelet Volume 8.7 6.9-10.8 fL Neutrophils (%) (Auto) 60.3 37.0-80.0 % Lymphocytes (%) (Auto) 28.3 10.0-50.0 % Monocytes (%) (Auto) 7.8 0.0-12.0 % Eosinophils (%) (Auto) 3.1 0.0-7.0 % Basophils (%) (Auto) 0.5 0.0-2.0 % Neutrophils # (Auto) 4.6 1.6-8.6 10 ^3/uL Lymphocytes # (Auto) 2.1 0.4-5.4 10 ^3/uL Monocytes # (Auto) 0.6 0-1.3 10 ^3/uL Eosinophils # (Auto) 0.2 0-0.8 10 ^3/uL Basophils # (Auto) 0 0-0.2 10 ^3/uL Nucleated Red Blood Cells 0.0 % B-Type Natriuretic Peptide 250.70 0-100 pg/mL Triglycerides Level 288 H < 150 mg/dL Cholesterol Level 214 H < 200 mg/dL LDL Cholesterol 127 H < 100 mg/dL HDL Cholesterol 59 40-59 mg/dL Microbiology Date/Time Source Procedure Growth Status 06/02/25 14:55 Voided Urine Urine Culture - Preliminary Resulted Assessment acute on chronic diastolic HF nyha Class III ckd afib htn obesity Plan/Recommendation dc asa start doac for pt rate control pt iv lasix prn outpt holter Plan discussed with: Patient SHAWN CHURCH MD Jun 04, 2025 10:07
[2025-06-04] MEDS ORDERED: FURO40TA4 PO (16:03)
[2025-06-04] MEDS ORDERED: APIX5TAB PO (16:03)
--- NOTE | 2025-06-04 16:04 | DVHDS2 ---
Discharge Summary Date of Admission Jun 02, 2025 at 21:25 Date of Discharge: Jun 04, 2025 Labs/Diagnostic Data: Laboratory Results Test 06/04/25 07:22 06/03/25 19:05 06/02/25 14:55 06/02/25 14:04 Sodium Level 142 mmol/L (136-145) Potassium Level 3.5 mmol/L (3.5-5.1) Chloride Level 101 mmol/L (98-107) Carbon Dioxide Level 29 mmol/L (20-31) Anion Gap 12 (5-15) Blood Urea Nitrogen 16 mg/dL (9-23) Creatinine 0.89 mg/dL (0.550-1.02) Glomerular Filtration Rate Calc 69 mL/min (>90) BUN/Creatinine Ratio 18.0 (10.0-20.0) Serum Glucose 100 mg/dL (74-106) Calcium Level 9.0 mg/dL (8.7-10.4) Troponin I High Sensitivity 39 ng/L (</=34) Urine Color Light-yellow (Yellow) Urine Clarity Clear (Clear) Urine pH 6.0 (5.0-9.0) Urine Specific [place] 1.018 (1.001-1.035) Urine Protein Negative (Negative) Urine Ketones Negative (Negative) Urine Blood 1+ /uL (Negative) Urine Nitrite Negative (Negative) Urine Bilirubin Negative (Negative) Urine Urobilinogen Normal mg/dL (Negative) Urine Leukocyte Esterase 3+ /uL (Negative) Urine RBC 11 /hpf (0 - 4) Urine Microscopic WBC 8 /HPF (0-5) Urine Squamous Epithelial Cells Few /hpf (<5) Urine Bacteria None seen /hpf (None Seen) Urine Mucus Few (None Seen) Urine Glucose Normal mg/dL (Normal) White Blood Count 7.6 10^3/uL (4.4-10.8) Red Blood Count 4.35 10^6/uL (4.0-5.20) Hemoglobin 12.6 g/dL (12.2-16.2) Hematocrit 37.4 % (36.0-46.0) Mean Corpuscular Volume 86.1 fL (80.0-100.0) Mean Corpuscular Hemoglobin 28.9 pg (28.0-32.0) Mean Corpuscular Hemoglobin Concent 33.6 g/dL (32.0-36.0) Red Cell Distribution Width 14.4 % (11.8-14.3) Platelet Count 249 10^3/uL (140-450) Mean Platelet Volume 8.7 fL (6.9-10.8) Neutrophils (%) (Auto) 60.3 % (37.0-80.0) Lymphocytes (%) (Auto) 28.3 % (10.0-50.0) Monocytes (%) (Auto) 7.8 % (0.0-12.0) Eosinophils (%) (Auto) 3.1 % (0.0-7.0) Basophils (%) (Auto) 0.5 % (0.0-2.0) Neutrophils # (Auto) 4.6 10 ^3/uL (1.6-8.6) Lymphocytes # (Auto) 2.1 10 ^3/uL (0.4-5.4) Monocytes # (Auto) 0.6 10 ^3/uL (0-1.3) Eosinophils # (Auto) 0.2 10 ^3/uL (0-0.8) Basophils # (Auto) 0 10 ^3/uL (0-0.2) Nucleated Red Blood Cells 0.0 % B-Type Natriuretic Peptide 250.70 pg/mL (0-100) Triglycerides Level 288 mg/dL (< 150) Cholesterol Level 214 mg/dL (< 200) LDL Cholesterol 127 mg/dL (< 100) HDL Cholesterol 59 mg/dL (40-59) Other Laboratory Tests 06/04/25 07:22 06/02/25 14:04 Brief Hx & Hospital Course: Mrs. Suyapa Hernandez is a 70 year old female, with a history of Hypertension who presents with a chief complaint of shortness of breath w/exertion x 1 week. Patient reports becoming short of breath within walking a a few meters. She reports associated dizziness and bilateral lower extremity swelling, patient also reports chest pressure to generalized chest. Denies any weakness, lightheadedness, or further associated symptoms. No reported recent injuries or prior ailments along with any pertinent recent history or events. Patient admitted for further evaluation. She is admitted and evaluated by manager welding. Patient's echocardiogram showed normal ejection fraction. [place] probably has diastolic dysfunction patient's CBC with IV diuresis and symptoms resolved. Rest of her workup in the hospital is normal. Therefore she he is being discharged home. Today I talked to the patient along with supervisor webbing at bedside regarding her hospital diagnosis, treatment she received, echocardiogram results, discharge medications, discharge instructions and follow up plan of care. She has verbalized understanding of these and agreed with care plan as outlined. Consults/Reason for consult Assessment acute on chronic diastolic HF nyha Class III ckd afib htn obesity Plan/Recommendation dc asa start doac for pt rate control pt iv lasix prn outpt holter Plan discussed with: Patient SHAWN CHURCH MD Jun 04, 2025 10:07 Operations or Procedures 2D echocardiogram Conclusion Rhythm. Concentric LVH. Valves are normal. Mild mitral annular calcification. EF of 60% with normal RV function. Mild TR. No pericardial effusion masses or vegetations. SIGNED BY: MARY HENDERSON Sr., MD SIGNED DATE/TIME: 06/03/25 3022 Condition at Discharge: Stable Final Diagnosis/Problems List acute on chronic diastolic HF nyha Class III ckd afib htn obesity Discharge Disposition: Home Discharge Instruct/Medications Diet: Consistent carbohydrate, Cardiac 2g Na,low cholest Activity: No Restrictions, As Tolerated Follow Up/Referral: Primary care physician next week and referral to Dr. Андрей Figueroa for further management of AFib and heart failure Medications: Take medications as prescribed and per discharge med reconciliation list Scheduled Apixaban Base (Eliquis), 5 MG PO BID Benzonatate (Benzonatate), 1-2 CAP PO Q4HR Furosemide (Furosemide), 0.5 TAB PO DAILY Discharge Statement: "Patient was advised to return to the ER or call 911 if any headaches, dizziness, shortness of breath, chest pain, abdominal pain, bleeding, fevers, or worsening of medical condition. Patient was counseled about treatment plan, medications, possible side effects, patientverbalized understanding. All questions were answered to the best of my ability. This discharge took greater then 30 minutes in planning, reviewing documentation, counseling the patient, and discussing with other team members." ASSESSMENT ASSESSMENT Assessment acute on chronic diastolic HF nyha Class III ckd afib htn obesity LYDIA CAZARES MD Jun 04, 2025 16:04
[2025-06-04] MEDS ORDERED: APIXABAN 5 MG TAB PO SCH (22:00)
== END 2025-06-04 18:45 | disposition home or self-care (01) | DRG 280 ==
LOC: EEVIPCON 13:36 → ER 13:36 → OVERFLOW 21:25 → EEVIPCON 21:25 → TELE-WESTW 06-03 05:28
PROVIDERS: ADMIT Nurse Practitioner Family; ATTEND Nurse Practitioner Family
DX: I13.0 Hypertensive heart and chronic kidney disease with heart failure and stage 1 through stage 4 chronic kidney disease, or unspecified chronic kidney disease (principal); I50.33 Acute on chronic diastolic (congestive) heart failure; I21.A1 Myocardial infarction type 2; N39.0 Urinary tract infection, site not specified; I16.0 Hypertensive urgency; I48.91 Unspecified atrial fibrillation; N18.9 Chronic kidney disease, unspecified; E66.9 Obesity, unspecified; Z68.35 Body mass index [BMI] 35.0-35.9, adult; I34.81 Nonrheumatic mitral (valve) annulus calcification; G90.9 Disorder of the autonomic nervous system, unspecified; I43 Cardiomyopathy in diseases classified elsewhere
CPT/HCPCS: 36415; 71045; 71275; 80048; 80061; 81001; 83880; 84484; 85025; 87086; 93005; 93306; 96365; 96375; 99291; 99292; G0378